=== PATIENT | female | born 1960 | race Caucasian/White ===

== ENCOUNTER 2016-06-24 04:52 | Observation (INO) | payer OTHER ==
[~2016-06-24] VITALS: Ht 160 cm; Wt 93.2 kg
[~2016-06-24 04:52] MED LIST: ACETAMINOPHEN-H1 TA1 PO; ATORVASTATIN CA40 M1 PO; CIP250 PO; COL100 PO; DEXPF IV; HEP100I IV; HEP5I IV; HUMULIN R100 U/1 M1 SC; LAC PO; LISINOPRIL10 MG PO; METOPROLOL TART25 M1 PO; MOR2I IV; NIT0.4 SL; NITOUD TOP; NPHOS PO; PRI20 PO; TYL325 PO; ZES10 PO; ZOFI IV
[2016-06-24 05:19] LABS: BASOPHIL % 1.4 % (0-2)
[2016-06-24 05:21] LABS: PLATELET COUNT 469 x10^3mcL (130-400); RED CELL DISTRIBUTION WIDTH 14.9 % (11.5-14.5)
[2016-06-24 05:31] LABS: CALCIUM 9.1 mg/dL (8.5-10.1); CARBON DIOXIDE 22.4 mmol/L (21-32); CHLORIDE SERUM 106 mmol/L (98-107); CREATININE SERUM 0.7 mg/dL (0.6-1.0); GFR1 > 60 mL/min; GLUCOSE SERUM 179 mg/dL (74-106); POTASSIUM SERUM 3.9 mmol/L (3.5-5.1); SODIUM SERUM 139 mmol/L (136-145)
[2016-06-24 05:37] LABS: ALBUMIN 3.4 g/dL (3.4-5.0); ALKALINE PHOSPHATASE 88 U/L (46-116); ALT/SGPT 28 U/L (14-59); AST/SGOT 21 U/L (15-37); BILIRUBIN TOTAL 0.24 mg/dL (0.20-1.00); CHOLESTEROL 110 mg/dL (<200); HDL CHOLESTEROL 34 mg/dL (40-60); PHOSPHOROUS 4.3 mg/dL (2.5-4.9); TOTAL PROTEIN, SERUM 7.7 g/dL (6.4-8.2); URIC ACID 5.2 mg/dL (2.6-6.0)
[2016-06-24 07:43] VITALS: BP 145/95
[2016-06-24 08:05] VITALS: BP 141/69
[2016-06-24 11:19] LABS: FREE T4 1.17 ng/dL (0.76-1.46); FREE THYROXINE INDEX 2.7 ug/dL (1.4-4.5); T4(THYROXINE) 8.7 ug/dL (4.7-13.3)
[2016-06-24 11:21] LABS: CHOLESTEROL/HDL RATIO 3.3
[2016-06-24 11:25] LABS: T3 TOTAL 1.19 ng/mL
[2016-06-24 14:05] VITALS: BP 145/75
[2016-06-24 14:19] LABS: microscopic required? YES; urine erythrocyte 3+ (NEGATIVE)
[2016-06-24 14:38] LABS: AMPHETAMINE QUAL UR NONE DETECTED (NEG <=1000)
[2016-06-24 19:02] VITALS: BP 121/68
[2016-06-24 20:58] VITALS: BP 136/77
[2016-06-25 05:37] VITALS: BP 130/74
[2016-06-25 05:56] LABS: BASOPHIL % 0.8 % (0-2)
[2016-06-25 06:07] LABS: CALCIUM 8.9 mg/dL (8.5-10.1); CARBON DIOXIDE 26.6 mmol/L (21-32); CHLORIDE SERUM 107 mmol/L (98-107); CREATININE SERUM 0.6 mg/dL (0.6-1.0); GFR1 > 60 mL/min; GLUCOSE SERUM 131 mg/dL (74-106); MAGNESIUM 1.9 mg/dL (1.8-2.4); PHOSPHOROUS 3.5 mg/dL (2.5-4.9); SODIUM SERUM 140 mmol/L (136-145)
[2016-06-25 06:33] LABS: PLATELET COUNT 473 x10^3mcL (130-400); RED CELL DISTRIBUTION WIDTH 15.1 % (11.5-14.5)
[2016-06-25 09:30] VITALS: BP 132/69
[2016-06-25 10:35] VITALS: BP 126/68
[2016-06-25 14:28] VITALS: BP 125/69
[2016-06-25] MEDS ORDERED: GOOD SENSE ASPI81 M3 PO (14:35)
[2016-06-25 14:59] VITALS: BP 125/69
[2016-06-25] MEDS ORDERED: BACTRIM DS1 TAB PO (15:09)
[2016-06-25] MEDS ORDERED: LAC PO (15:09)
== END 2016-06-25 16:56 | disposition home or self-care (01) | DRG 206 ==
LOC: ED 04:52 → DU 05:51
PROVIDERS: Emergency Medicine; ADMIT Family Medicine
DX: M94.0 Chondrocostal junction syndrome [Tietze] (principal); N39.0 Urinary tract infection, site not specified; D68.69 Other thrombophilia; E11.65 Type 2 diabetes mellitus with hyperglycemia; I10 Essential (primary) hypertension; F41.9 Anxiety disorder, unspecified; F32.9 Major depressive disorder, single episode, unspecified; I25.10 Atherosclerotic heart disease of native coronary artery without angina pectoris; I25.2 Old myocardial infarction; E78.5 Hyperlipidemia, unspecified; Z95.1 Presence of aortocoronary bypass graft; Z79.01 Long term (current) use of anticoagulants; Z79.4 Long term (current) use of insulin; Z98.890 Other specified postprocedural states; Z68.36 Body mass index [BMI] 36.0-36.9, adult
CPT/HCPCS: 80307; 82962; 83880; 84439; A9500; G0378; J1956; J2785; J7030; J7042